=== PATIENT | female | born 1960 | race Caucasian/White ===

== ENCOUNTER → 2018-01-07 | Outpatient (CLI) | payer MEDICARE ==
[~2018-01-07] MED LIST: BUPR-175 PO; Z.0.NO CURRENT MEDS
--- NOTE | 2018-01-12 09:14 | RSPPFT ---
DATE OF PROCEDURE: 01/07/18 COMMENTS: Spirometry shows FVC of 2.9 at 109% of predicted, FEV1 of 2.0 at 91%, FEV1/FVC ratio is decreased. Flow is decreased at FEF 25, FEF 50, FEF 75 and FEF 25-75. There is no response after bronchodilator treatment. Lung volumes show residual volume is normal. TLC is normal. Diffusion capacity is normal. Flow volume loop indicates an obstructive pattern. IMPRESSION: 1. Mild small airways obstructive lung disease. 2. No response after bronchodilator treatment. 3. Normal lung volumes. 4. Normal diffusion capacity.
== END ==
LOC: PHRSP 07:49
PROVIDERS: ATTEND Specialist
DX: J44.9 Chronic obstructive pulmonary disease, unspecified (principal)
CPT/HCPCS: 94060; 94726; 94729